=== PATIENT | female | born 1955 ===

== ENCOUNTER 2017-08-21 01:15 | Inpatient (IN) | payer MEDICARE, BC ==
--- NOTE | 2017-08-21 02:13 | C.PDOC ---
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 Patient also complains of slight dysuria which began 2 hours ago. Patient underwent a colonoscopy around 3 months ago and states results were unremarkable. Patient underwent an endoscopy last month and was found to have a gastric ulcer. She denies fever, chills, diarrhea, hematuria. Time Seen by Provider: 08/21/17 02:13 Chief Complaint (Nursing): Abdominal Pain History Per: Patient History/Exam Limitations: no limitations Onset/Duration Of Symptoms: Hrs Current Symptoms Are (Timing): Still Present Severity: Moderate Pain Scale Rating Of: 5 Location Of Pain/Discomfort: Diffuse Radiation Of Pain To:: None Quality Of Discomfort: "Pain" Associated Symptoms: Nausea, Vomiting, Urinary Symptoms (dysuria ). denies: Fever, Chills, Diarrhea Exacerbating Factors: None Alleviating Factors: None Last Bowel Movement: Today Recent travel outside of the [place]: No Additional History Per: Patient Abnormal Vaginal Bleeding: No Past Medical History Reviewed: Historical Data, Nursing Documentation, Vital Signs Vital Signs: Last Vital Signs Temp 98.3 F 08/21/17 01:28 Pulse 87 08/21/17 01:28 Resp 16 08/21/17 01:28 BP 122/84 08/21/17 01:28 Pulse Ox 100 08/21/17 02:33 - Medical History PMH: No Chronic Diseases Surgical History: Endoscopy Family History: States: No Known Family Hx - Social History Hx Alcohol Use: No Hx Substance Use: No Review Of Systems Constitutional: Negative for: Fever, Chills Cardiovascular: Negative for: Chest Pain, Palpitations Respiratory: Negative for: Cough, Shortness of Breath Gastrointestinal: Positive for: Nausea, Vomiting, Abdominal Pain Genitourinary: Positive for: Dysuria. Negative for: Frequency, Hematuria Musculoskeletal: Negative for: Back Pain Skin: Negative for: Rash, Lesions, Jaundice, Bruising Neurological: Negative for: Weakness, Numbness Physical Exam - Physical Exam Appears: Non-toxic, No Acute Distress Skin: Warm, Dry Head: Normacephalic Eye(s): bilateral: Normal Inspection Oral Mucosa: Moist Neck: Supple Chest: Symmetrical, No Deformity, No Tenderness Cardiovascular: Rhythm Regular, No Murmur Respiratory: No Rales, No Rhonchi, No Wheezing Gastrointestinal/Abdominal: Soft, Tenderness (diffuse ), Guarding (slight, voluntary ), No Rebound, Other (tympanic to percussion ) Extremity: Normal ROM, Capillary Refill (less than 2 seconds ) Neurological/Psych: Oriented x3 Gait: Steady ED Course And Treatment - Laboratory Results Result Diagrams: 08/21/17 02:39 0218 02:39 ECG: Interpreted By Me, Viewed By Me ECG Rhythm: Sinus Rhythm (84), Nonspecific Changes O2 Sat by Pulse Oximetry: 100 (on RA ) Pulse Ox Interpretation: Normal Progress Note: Bloodwork, urinalysis, CT A/P ordered. Morphine IVP, Pepcid IVP , Zofran IVP, and IV Fluids administered. Disposition Discussed With Dr.: Saeid Phillip Comment: accepted the pt on his service and took over the care at5;45AM Doctor Will See Patient In The: ED Counseled Patient/Family Regarding: Studies Performed, Diagnosis - Disposition Disposition: HOSPITALIZED Disposition Time: 02:13 Condition: FAIR Forms: [facility] [facility] (Greenlandic) - POA Present On Arrival: None - Clinical Impression Clinical Impression: Abdominal pain, SBO (small bowel obstruction), Urinary retention - Scribe Statement The provider has reviewed the documentation as recorded by the Scribe (Dulce Solorzano) Provider Attestation: All medical record entries made by the Scribe were at my direction and personally dictated by me. I have reviewed the chart and agree that the record accurately reflects my personal performance of the history, physical exam, medical decision making, and the department course for this patient. I have also personally directed, reviewed, and agree with the discharge instructions and disposition. Decision To Admit - Pt Status Changed To: Hospital Disposition Of: Inpatient - Admit Certification Admit to Inpatient:: After my assessment, the patient will require hospitalization for at least two midnights. This is because of the severity of symptoms shown, intensity of services needed, and/or the medical risk in this patient being treated as an outpatient. - InPatient: Physician Admission Certification:: After my assessment, the patient will require hospitalization for at least two midnights. This is because of the severity of symptoms shown, intensity of services needed, and/or the medical risk in this patient being treated as an outpatient. - . Bed Request Type: Regular Admitting Physician: Saeid Phillip Patient Diagnosis: Abdominal pain, SBO (small bowel obstruction), Urinary retention
[2017-08-21] MEDS ORDERED: Sodium Chloride 0.9% 1,000 ML IV ONE (02:17)
[2017-08-21] MEDS ORDERED: Sodium Chloride 0.9% 1,000 ML ONE (02:23)
[2017-08-21] MEDS ORDERED: Morphine 4 MG/ML VIAL ONE ×2 (02:24→08:17)
[2017-08-21 02:42] LABS: BASO % 0.3 % (0.0-2.0); EOS % 0.1 % (0.0-4.0); HEMOGLOBIN 13.7 g/dL (11.0-16.0); LYMPH # 0.6 K/uL (1.0-4.3); LYMPH % 4.2 % (20.0-40.0); MEAN CELL VOLUME 86.9 fL (81.0-99.0); MEAN CORPUSCULAR HEMOGLOBIN 29.7 pg (27.0-31.0); MEAN CORPUSCULAR HGB CONC 34.2 g/dL (33.0-37.0); MEAN PLATELET VOLUME 7.9 fL (7.2-11.7); MONO # 0.5 K/uL (0.0-0.8); MONO % 3.5 % (0.0-10.0); NEUT # 13.1 K/uL (1.8-7.0); NEUT % 91.9 % (50.0-75.0); NRBC % 0.1 % (0.0-2.0); PLATELET COUNT 277 K/uL (130-400); RBC 4.61 Mil/uL (3.80-5.20); RED CELL DISTRIBUTION WIDTH 13.2 % (11.5-14.5); WHITE BLOOD COUNT 14.2 K/uL (4.8-10.8)
[2017-08-21 02:53] LABS: ALB/GLOB RATIO 1.1 (1.0-2.1); ALBUMIN 4.4 g/dL (3.5-5.0); CALCIUM 8.9 mg/dl (8.6-10.4); GFR AFRICAN-AMERICAN > 60; GFR NON-AFRICAN AMERICAN > 60; LIPASE 271 U/L (23-300)
[2017-08-21 02:54] LABS: ALT/SGPT 30 U/L (9-52); AST/SGOT 37 U/L (14-36); BLOOD UREA NITROGEN 16 mg/dL (7-17)
[2017-08-21 03:22] LABS: BANDS 3 % (0-2); LYMPHOCYTE 5 % (20-40); MONOCYTE 4 % (0-10); NEUTROPHIL 88 % (50-75); PLATELET ESTIMATE NORMAL (NORMAL); TOTAL CELLS COUNTED 100
[2017-08-21] MEDS ORDERED: Iodixanol 320 MG/ML 100 ML BOTTLE IV ONE (03:38)
[2017-08-21 03:49] LABS: PROTHROMBIN TIME 11.2 SECONDS (9.7-12.2)
[2017-08-21 04:16] LABS: SQUAMOUS EPITHIAL < 1 /hpf (0-5); URINE BACTERIA RARE (<OCC); URINE BILIRUBIN NEGATIVE (NEGATIVE); URINE BLOOD 2+ (NEGATIVE); URINE CLARITY Clear (Clear); URINE COLOR Straw (YELLOW); URINE GLUCOSE (UA) NORMAL (Normal); URINE LEUKOCYTE ESTERASE NEG Leu/uL (Negative); URINE NITRATE NEGATIVE (NEGATIVE); URINE PROTEIN NEGATIVE (NEGATIVE); URINE UROBILINOGEN NORMAL mg/dL (0.2-1.0)
--- NOTE | 2017-08-21 05:08 | CT ---
EXAM: CT Abdomen and Pelvis With Intravenous Contrast CLINICAL HISTORY: 61 years old, female; Pain; Abdominal pain; Additional info: Abd pain TECHNIQUE: Axial computed tomography images of the abdomen and pelvis with intravenous contrast. All CT scans at this facility use one or more dose reduction techniques, viz.: automated exposure control; ma/kV adjustment per patient size (including targeted exams where dose is matched to indication; i.e. head); or iterative reconstruction technique. 663 images are submitted.Sagittal and coronal MPR reformatted images are submitted. Coronal and sagittal reformatted images were created and reviewed. CONTRAST: 100 mL of [id number] administered intravenously. COMPARISON: No relevant prior studies available. FINDINGS: Artifacts: Limited due to motion and misregistration artifacts. Lower thorax: There is bibasilar atelectasis. Mild cardiomegaly. Possible small hiatal hernia. ABDOMEN: Liver: Fatty liver. Gallbladder and bile ducts: Unremarkable. No ductal dilation. Pancreas: Borderline prominence of pancreatic duct. Spleen: Unremarkable. No splenomegaly. Adrenals: Unremarkable. No mass. Kidneys and ureters: Unremarkable. No solid mass. No hydronephrosis. Stomach and bowel: There are dilated small bowel loops with air fluid level measuring 2.2 cm with mesenteric edema and transition in the right posterior pelvis seen on image 122 series 3 suspicious for small bowel obstruction. Correlation with patient's obstructive symptoms is recommended. Diverticulosis. Moderate amount of stool in the colon. Appendix: Normal caliber appendix without appendicolith. There is surrounding reactive infiltration around the appendix. PELVIS: Bladder: There is nonspecific bladder wall thickening. Correlation with urinalysis may be helpful if cystitis is clinically suspected. There is García catheter in a partially distended bladder with air fluid level. Reproductive: Heterogeneous appearance to the uterus. ABDOMEN and PELVIS: Intraperitoneal space: Moderate to large amount of free pelvic fluid. No free air. Bones/joints: No acute fracture. No dislocation. Soft tissues: Unremarkable. Vasculature: IVC filter. No abdominal aortic aneurysm. Lymph nodes: Small subcentimeter para-aortic lymph nodes. IMPRESSION: 1. There are dilated small bowel loops with air fluid level measuring 2.2 cm with mesenteric edema and transition in the right posterior pelvis seen on image 122 series 3 suspicious for small bowel obstruction. Correlation with patient's obstructive symptoms is recommended. 2. Moderate to large amount of free pelvic fluid.
[2017-08-21] MEDS ORDERED: Piperacillin/Tazobact 3.375 gm 100 ML IVPB STA (05:38)
[2017-08-21] MEDS ORDERED: Piperacillin/Tazobact 3.375 GM in Sodium Chloride 0.9% 100 ML IVPB STA (05:45)
--- NOTE | 2017-08-21 07:16 | CP.PCM.HP ---
Past Patient History - Past Social History Smoking Status: Never Smoked - PSYCHIATRIC Hx Substance Use: No - SURGICAL HISTORY Other/Comment: colonoscopy Meds Allergies/Adverse Reactions: Allergies Allergy/AdvReac Type Severity Reaction Status Date / Time No Known Allergies Allergy Verified 08/21/17 01:30 Results - Vital Signs Recent Vital Signs: Last Vital Signs Temp 98.3 F 08/21/17 01:28 Pulse 87 08/21/17 01:28 Resp 16 08/21/17 01:28 BP 122/84 08/21/17 01:28 Pulse Ox 100 08/21/17 06:00 - Labs Result Diagrams: 08/21/17 02:39 08/21/17 02:39 Labs: Laboratory Results - last 24 hr 08/21/17 08/21/17 08/21/17 02:39 02:39 03:39 WBC 14.2 H RBC 4.61 Hgb 13.7 Hct 40.0 MCV 86.9 MCH 29.7 MCHC 34.2 RDW 13.2 Plt Count 277 MPV 7.9 Neut % (Auto) 91.9 H Lymph % (Auto) 4.2 L Mason % (Auto) 3.5 Eos % (Auto) 0.1 Baso % (Auto) 0.3 Neut # (Auto) 13.1 H Lymph # (Auto) 0.6 L Mason # (Auto) 0.5 Eos # (Auto) 0.0 Baso # (Auto) 0.0 Neutrophils % (Manual) 88 H Band Neutrophils % 3 H Lymphocytes % (Manual) 5 L Monocytes % (Manual) 4 Platelet Estimate Normal PT 11.2 INR 1.0 APTT 30 Sodium 134 Potassium 4.6 Chloride 96 L Carbon Dioxide 28 Anion Gap 15 BUN 16 Creatinine 0.6 L Est GFR ( Amer) > 60 Est GFR (Non-Af Amer) > 60 Random Glucose 124 H Calcium 8.9 Total Bilirubin 0.8 AST 37 H ALT 30 Alkaline Phosphatase 72 Total Protein 8.2 Albumin 4.4 Globulin 3.8 Albumin/Globulin Ratio 1.1 Lipase 271 Urine Color Urine Clarity Urine pH Ur Specific [place] Urine Protein Urine Glucose (UA) Urine Ketones Urine Blood Urine Nitrate Urine Bilirubin Urine Urobilinogen Ur Leukocyte Esterase Urine WBC (Auto) Urine RBC (Auto) Ur Squamous Epith Cells Urine Bacteria 08/21/17 04:06 WBC RBC Hgb Hct MCV MCH MCHC RDW Plt Count MPV Neut % (Auto) Lymph % (Auto) Mason % (Auto) Eos % (Auto) Baso % (Auto) Neut # (Auto) Lymph # (Auto) Mason # (Auto) Eos # (Auto) Baso # (Auto) Neutrophils % (Manual) Band Neutrophils % Lymphocytes % (Manual) Monocytes % (Manual) Platelet Estimate PT INR APTT Sodium Potassium Chloride Carbon Dioxide Anion Gap BUN Creatinine Est GFR ( Amer) Est GFR (Non-Af Amer) Random Glucose Calcium Total Bilirubin AST ALT Alkaline Phosphatase Total Protein Albumin Globulin Albumin/Globulin Ratio Lipase Urine Color Straw Urine Clarity Clear Urine pH 6.0 Ur Specific [place] 1.008 Urine Protein Negative Urine Glucose (UA) Normal Urine Ketones 1+ H Urine Blood 2+ H Urine Nitrate Negative Urine Bilirubin Negative Urine Urobilinogen Normal Ur Leukocyte Esterase Neg Urine WBC (Auto) 1 Urine RBC (Auto) 8 H Ur Squamous Epith Cells < 1 Urine Bacteria Rare
[2017-08-21] MEDS: Morphine 4 MG/ML VIAL IVP PRN ×3 (08:23→21:21)
[2017-08-21] MEDS ORDERED: DEXTROSE IV SCH (08:30)
[2017-08-21] MEDS ORDERED: [UNRECOGNIZED DRUG - OTHER] IV SCH (08:30)
[2017-08-21] MEDS ORDERED: D5 IV SCH (08:30)
[2017-08-21] MEDS ORDERED: POTASSIUM CHL IV SCH (08:30)
[2017-08-21] MEDS ORDERED: Potassium Chl 10 mEq in D5-1/2 1,000 ML IV SCH (08:30)
[2017-08-21 09:03] LABS: MAGNESIUM 1.8 mg/dL (1.6-2.3)
--- NOTE | 2017-08-21 09:13 | RAD ---
Chest x-ray single frontal view History: Medical clearance. Comparison: None available. Findings: No focal infiltrate or effusion. Heart size within normal limits. Small nodular density at the right lung apex likely represents confluence of shadows of ribs and vessels. Impression: No focal infiltrate or effusion.
--- NOTE | 2017-08-21 09:35 | CP.PCM.CON ---
History of Present Illness - History of Present Illness History of Present Illness: General Surgery- Dr. Rouse 61F pmhx significant for diverticula, PUD 2/2 H.Pylori, pelvic cancer s/p chemo and radiation in 2004, R. Oopherectomy presents to [facility] ED with generalized abdominal pain localized periumbilical and RLQ yesterday at 5pm. patient never had pain like this in the past. Associated w/ one episode of non- bloody non-bilious vomiting, and nausea. Last BM was 2 days ago. Pt also states difficulty urinating, last void was yesterday at 5pm. Denies current fevers, chills, chest pain, shortnes of breath, nausea, vomiting , diarrhea PMH: stated above PSH: R oopherectomy ALL: NKDA SocialHx: Denies tobacco use, etoh, recreational drug use Review of Systems - Review of Systems All systems: reviewed and no additional remarkable complaints except - Constitutional Constitutional: As Per HPI Past Patient History - Past Social History Smoking Status: Never Smoked - PSYCHIATRIC Hx Substance Use: No - SURGICAL HISTORY Other/Comment: colonoscopy Meds Allergies/Adverse Reactions: Allergies Allergy/AdvReac Type Severity Reaction Status Date / Time No Known Allergies Allergy Verified 08/21/17 01:30 - Medications Medications: Current Medications Acetaminophen (Tylenol 325mg Tab) 650 mg PO Q6 PRN PRN Reason: Fever >100.4 F Famotidine (Pepcid) 20 mg IVP Q12 [facility] Ceftriaxone Sodium 1 gm/ (Sodium Chloride) 100 mls @ 100 mls/hr IVPB DAILY [facility] Metronidazole (Flagyl) 500 mg in 100 mls @ 100 mls/hr IVPB Q8 [facility] Potassium Chloride 10 meq/ (Dextrose/Sodium Chloride) 1,005 mls @ 100 mls/hr IV .Q10H3M [facility] Morphine Sulfate (Morphine) 1 mg IVP Q4 PRN PRN Reason: Pain, severe (8-10) Last Admin: 08/21/17 08:23 Dose: 1 mg Morphine Sulfate (Morphine) 2 mg IVP Q4 PRN PRN Reason: Pain, moderate (4-7) Ondansetron HCl (Zofran Inj) 4 mg IVP Q4H PRN PRN Reason: Nausea/Vomiting Pantoprazole Sodium (Protonix Inj) 40 mg IVP DAILY [facility] Physical Exam - Constitutional Appears: Non-toxic, No Acute Distress, Agitated - Head Exam Head Exam: ATRAUMATIC - Eye Exam Eye Exam: EOMI. absent: Scleral icterus - ENT Exam ENT Exam: Mucous Membranes Moist - Respiratory Exam Respiratory Exam: NORMAL BREATHING PATTERN. absent: Accessory Muscle Use, Respiratory Distress - Cardiovascular Exam Cardiovascular Exam: +S1, +S2. absent: Bradycardia, Tachycardia - GI/Abdominal Exam GI & Abdominal Exam: Distended, Guarding, Soft, Tenderness. absent: Firm, Hernia, Rebound, Rigid Additional comments: tender to palpation periumbilical in RLQ Scar in RLQ voluntary guarding non-peritoneal - Extremities Exam Extremities exam: Positive for: normal inspection. Negative for: calf tenderness - Neurological Exam Neurological exam: Alert, Oriented x3 - Psychiatric Exam Psychiatric exam: Normal Affect - Skin Skin Exam: Intact, Warm Results - Vital Signs Recent Vital Signs: Last Vital Signs Temp 98.1 F 08/21/17 09:22 Pulse 79 08/21/17 09:22 Resp 16 08/21/17 09:22 BP 102/65 08/21/17 09:22 Pulse Ox 98 08/21/17 09:22 - Labs Result Diagrams: 08/21/17 02:39 08/21/17 02:39 Labs: Laboratory Results - last 24 hr 08/21/17 08/21/17 08/21/17 02:39 02:39 03:39 WBC 14.2 H RBC 4.61 Hgb 13.7 Hct 40.0 MCV 86.9 MCH 29.7 MCHC 34.2 RDW 13.2 Plt Count 277 MPV 7.9 Neut % (Auto) 91.9 H Lymph % (Auto) 4.2 L Nicholas % (Auto) 3.5 Eos % (Auto) 0.1 Baso % (Auto) 0.3 Neut # (Auto) 13.1 H Lymph # (Auto) 0.6 L Nicholas # (Auto) 0.5 Eos # (Auto) 0.0 Baso # (Auto) 0.0 Neutrophils % (Manual) 88 H Band Neutrophils % 3 H Lymphocytes % (Manual) 5 L Monocytes % (Manual) 4 Platelet Estimate Normal PT 11.2 INR 1.0 APTT 30 Sodium 134 Potassium 4.6 Chloride 96 L Carbon Dioxide 28 Anion Gap 15 BUN 16 Creatinine 0.6 L Est GFR ( Amer) > 60 Est GFR (Non-Af Amer) > 60 Random Glucose 124 H Hemoglobin A1c Calcium 8.9 Phosphorus Magnesium Total Bilirubin 0.8 AST 37 H ALT 30 Alkaline Phosphatase 72 Total Protein 8.2 Albumin 4.4 Globulin 3.8 Albumin/Globulin Ratio 1.1 Lipase 271 Free T4 Urine Color Urine Clarity Urine pH Ur Specific [place] Urine Protein Urine Glucose (UA) Urine Ketones Urine Blood Urine Nitrate Urine Bilirubin Urine Urobilinogen Ur Leukocyte Esterase Urine WBC (Auto) Urine RBC (Auto) Ur Squamous Epith Cells Urine Bacteria 08/21/17 08/21/17 08/21/17 04:06 08:09 08:09 WBC RBC Hgb Hct MCV MCH MCHC RDW Plt Count MPV Neut % (Auto) Lymph % (Auto) Nicholas % (Auto) Eos % (Auto) Baso % (Auto) Neut # (Auto) Lymph # (Auto) Nicholas # (Auto) Eos # (Auto) Baso # (Auto) Neutrophils % (Manual) Band Neutrophils % Lymphocytes % (Manual) Monocytes % (Manual) Platelet Estimate PT INR APTT Sodium Potassium Chloride Carbon Dioxide Anion Gap BUN Creatinine Est GFR ( Amer) Est GFR (Non-Af Amer) Random Glucose Hemoglobin A1c 5.4 Calcium Phosphorus 3.4 Magnesium 1.8 Total Bilirubin AST ALT Alkaline Phosphatase Total Protein Albumin Globulin Albumin/Globulin Ratio Lipase Free T4 Urine Color Straw Urine Clarity Clear Urine pH 6.0 Ur Specific [place] 1.008 Urine Protein Negative Urine Glucose (UA) Normal Urine Ketones 1+ H Urine Blood 2+ H Urine Nitrate Negative Urine Bilirubin Negative Urine Urobilinogen Normal Ur Leukocyte Esterase Neg Urine WBC (Auto) 1 Urine RBC (Auto) 8 H Ur Squamous Epith Cells < 1 Urine Bacteria Rare 08/21/17 08:09 WBC RBC Hgb Hct MCV MCH MCHC RDW Plt Count MPV Neut % (Auto) Lymph % (Auto) Nicholas % (Auto) Eos % (Auto) Baso % (Auto) Neut # (Auto) Lymph # (Auto) Nicholas # (Auto) Eos # (Auto) Baso # (Auto) Neutrophils % (Manual) Band Neutrophils % Lymphocytes % (Manual) Monocytes % (Manual) Platelet Estimate PT INR APTT Sodium Potassium Chloride Carbon Dioxide Anion Gap BUN Creatinine Est GFR ( Amer) Est GFR (Non-Af Amer) Random Glucose Hemoglobin A1c Calcium Phosphorus Magnesium Total Bilirubin AST ALT Alkaline Phosphatase Total Protein Albumin Globulin Albumin/Globulin Ratio Lipase Free T4 0.93 Urine Color Urine Clarity Urine pH Ur Specific [place] Urine Protein Urine Glucose (UA) Urine Ketones Urine Blood Urine Nitrate Urine Bilirubin Urine Urobilinogen Ur Leukocyte Esterase Urine WBC (Auto) Urine RBC (Auto) Ur Squamous Epith Cells Urine Bacteria Assessment & Plan - Assessment and Plan (Free Text) Assessment: 61F pmhx gastric ulcer 2/2 h.pylori, open r. oopherectomy; abd pain 2/2 partial bowel obstruction Plan: - NPO - IVF & Abx - DVT & DVT ppx - pain control and anti-emetic PRN - bowel rest - serial abd exams - discussed w/ Dr. Rouse surgical attending Joss Chen PGY1
[2017-08-21] MEDS ORDERED: Morphine 4 MG/ML VIAL IVP PRN (10:00)
[2017-08-21 10:03] VITALS: RESP 20
[2017-08-21] MEDS: Potassium Chloride 10 MEQ in Dextrose 5%/0.45% NS 1,000 ML IV SCH ×2 (11:15→21:20)
[2017-08-21] MEDS ORDERED: Piperacillin/Tazobact 3.375 GM in Sodium Chloride 100 ML IVPB SCH (12:00)
[2017-08-21] MEDS: Piperacillin/Tazobact 3.375 GM in Sodium Chloride 100 ML IVPB SCH ×2 (12:35→21:20)
[2017-08-21] MEDS ORDERED: metroNIDAZOLE IV 500 mg/100 ml 500 MG/100 ML BAG IVPB SCH (14:00)
[2017-08-21] MEDS: metroNIDAZOLE IV 500 mg/100 ml 500 MG/100 ML BAG IVPB SCH (17:42)
[2017-08-22] MEDS: Potassium Chloride 10 MEQ in Dextrose 5%/0.45% NS 1,000 ML IV SCH ×3 (00:25→13:52)
[2017-08-22] MEDS: Piperacillin/Tazobact 3.375 GM in Sodium Chloride 100 ML IVPB SCH ×2 (05:00→11:51)
[2017-08-22 08:11] LABS: BASO % 0.1 % (0.0-2.0); EOS % 0.1 % (0.0-4.0); LYMPH # 0.3 K/uL (1.0-4.3); LYMPH % 4.1 % (20.0-40.0); MEAN CELL VOLUME 86.9 fL (81.0-99.0); MEAN CORPUSCULAR HEMOGLOBIN 30.8 pg (27.0-31.0); MEAN CORPUSCULAR HGB CONC 35.4 g/dL (33.0-37.0); MEAN PLATELET VOLUME 7.8 fL (7.2-11.7); MONO # 0.2 K/uL (0.0-0.8); MONO % 2.2 % (0.0-10.0); NEUT # 6.8 K/uL (1.8-7.0); NEUT % 93.5 % (50.0-75.0); PLATELET COUNT 228 K/uL (130-400); RBC 3.91 Mil/uL (3.80-5.20); RED CELL DISTRIBUTION WIDTH 13.1 % (11.5-14.5); WHITE BLOOD COUNT 7.2 K/uL (4.8-10.8)
[2017-08-22 08:24] LABS: ALB/GLOB RATIO 1.1 (1.0-2.1); ALBUMIN 3.1 g/dL (3.5-5.0); ALT/SGPT 24 U/L (9-52); AST/SGOT 24 U/L (14-36); BLOOD UREA NITROGEN 8 mg/dL (7-17); CALCIUM 7.8 mg/dl (8.6-10.4); GFR AFRICAN-AMERICAN > 60; GFR NON-AFRICAN AMERICAN > 60; MAGNESIUM 2.1 mg/dL (1.6-2.3)
[2017-08-22] MEDS: metroNIDAZOLE IV 500 mg/100 ml 500 MG/100 ML BAG IVPB SCH (09:27)
--- NOTE | 2017-08-22 09:30 | CP.PCM.PN ---
Subjective - Date & Time of Evaluation Date of Evaluation: 08/22/17 Time of Evaluation: 07:05 - Subjective Subjective: General Surgery- Dr. Rouse Patient seen and examined at bedside this AM. no acute events overnight. Patient anand was removed, able self void. Abd pain significantly improved. + loose non-bloody BM. Denies current nausea or vomiting. Denies F/C CP/SOB Objective - Vital Signs/Intake and Output Vital Signs (last 24 hours): Temp Pulse Resp BP Pulse Ox 99.2 F 83 20 104/69 95 08/22/17 07:43 08/22/17 07:43 08/22/17 07:43 08/22/17 07:43 08/22/17 07:43 Intake and Output: 08/22/17 08/22/17 06:59 18:59 Intake Total 1600 Output Total 800 Balance 800 - Medications Medications: Current Medications Acetaminophen (Tylenol 325mg Tab) 650 mg PO Q6 PRN PRN Reason: Fever >100.4 F Famotidine (Pepcid) 20 mg IVP Q12 [facility] Last Admin: 08/21/17 21:23 Dose: 20 mg Potassium Chloride 10 meq/ (Dextrose/Sodium Chloride) 1,005 mls @ 100 mls/hr IV .Q10H3M [facility] Last Admin: 08/22/17 05:19 Dose: Not Given Piperacillin Sod/Tazobactam (Sod 3.375 gm/ Sodium Chloride) 100 mls @ 200 mls/ hr IVPB Q8H [facility] Last Admin: 08/22/17 05:00 Dose: 200 mls/hr Metronidazole (Flagyl) 500 mg in 100 mls @ 100 mls/hr IVPB BID [facility] Last Admin: 08/21/17 17:42 Dose: 100 mls/hr Metoclopramide HCl (Reglan) 5 mg IVP Q8H [facility] Last Admin: 08/22/17 05:18 Dose: 5 mg Morphine Sulfate (Morphine) 1 mg IVP Q4 PRN PRN Reason: Pain, severe (8-10) Last Admin: 08/21/17 21:21 Dose: 1 mg Morphine Sulfate (Morphine) 2 mg IVP Q4 PRN PRN Reason: Pain, moderate (4-7) Pantoprazole Sodium (Protonix Inj) 40 mg IVP DAILY [facility] Last Admin: 02/15/18 10:56 Dose: 40 mg - Labs Labs: 08/22/17 07:50 08/22/17 07:50 PT 11.2 SECONDS (9.7-12.2) 08/21/17 03:39 INR 1.0 08/21/17 03:39 APTT 30 SECONDS (21-34) 08/21/17 03:39 - Constitutional Appears: Non-toxic, No Acute Distress - Head Exam Head Exam: ATRAUMATIC - Eye Exam Eye Exam: EOMI. absent: Scleral icterus - ENT Exam ENT Exam: Mucous Membranes Moist - Respiratory Exam Respiratory Exam: NORMAL BREATHING PATTERN. absent: Accessory Muscle Use, Respiratory Distress - Cardiovascular Exam Cardiovascular Exam: +S1, +S2. absent: Bradycardia, Tachycardia - GI/Abdominal Exam GI & Abdominal Exam: Firm, Soft. absent: Distended, Guarding, Rigid, Tenderness Additional comments: Firm in RLQ and inferior umbilical possibly 2/2 radiation - Neurological Exam Neurological Exam: Alert, Awake, Oriented x3 - Psychiatric Exam Psychiatric exam: Normal Affect - Skin Skin Exam: Dry, Warm Assessment and Plan - Assessment and Plan (Free Text) Assessment: 61F w/ pSBO, abd pain resolved, luekocytosis resolved Plan: - unable to tolerate clears - will make NPO and re-asses in AM - monitor bowel function - strict I/O - pain control and anti-emetic PRN - serial abd exams - further recs per Dr. Rouse surgical attending Joss Chen PGY1
[2017-08-22] MEDS ORDERED: Potassium Chloride 20 mEq/15 ml LIQ UD PO ONE (09:36)
--- NOTE | 2017-08-22 09:48 | CP.PCM.PN ---
Subjective - Date & Time of Evaluation Date of Evaluation: 08/22/17 Time of Evaluation: 07:45 - Subjective Subjective: PGY2 Medicine Note - Dr. Anthony Solorzano Patient seen and examined at bedside. Admitted 08/21/17 due to generalized abdominal pain and one episode of n/v. Currently being followed by general surgery. Her last BM was 2 days ago and loose. She currently denies abdominal pain, but feels bloated. Denies f/c, SOB, n/v, or any additional acute complaints. Objective - Vital Signs/Intake and Output Vital Signs (last 24 hours): Temp Pulse Resp BP Pulse Ox 99.2 F 83 20 104/69 95 08/22/17 07:43 08/22/17 07:43 08/22/17 07:43 08/22/17 07:43 08/22/17 07:43 Intake and Output: 08/22/17 08/22/17 06:59 18:59 Intake Total 1600 Output Total 800 Balance 800 - Medications Medications: Current Medications Acetaminophen (Tylenol 325mg Tab) 650 mg PO Q6 PRN PRN Reason: Fever >100.4 F Famotidine (Pepcid) 20 mg IVP Q12 [facility] Last Admin: 08/22/17 09:28 Dose: 20 mg Potassium Chloride 10 meq/ (Dextrose/Sodium Chloride) 1,005 mls @ 100 mls/hr IV .Q10H3M [facility] Last Admin: 08/22/17 05:19 Dose: Not Given Piperacillin Sod/Tazobactam (Sod 3.375 gm/ Sodium Chloride) 100 mls @ 200 mls/ hr IVPB Q8H [facility] Last Admin: 08/22/17 05:00 Dose: 200 mls/hr Metronidazole (Flagyl) 500 mg in 100 mls @ 100 mls/hr IVPB BID [facility] Last Admin: 08/22/17 09:27 Dose: 100 mls/hr Metoclopramide HCl (Reglan) 5 mg IVP Q8H [facility] Last Admin: 08/22/17 05:18 Dose: 5 mg Morphine Sulfate (Morphine) 1 mg IVP Q4 PRN PRN Reason: Pain, severe (8-10) Last Admin: 08/21/17 21:21 Dose: 1 mg Morphine Sulfate (Morphine) 2 mg IVP Q4 PRN PRN Reason: Pain, moderate (4-7) Pantoprazole Sodium (Protonix Inj) 40 mg IVP DAILY [facility] Last Admin: 08/22/17 09:28 Dose: 40 mg - Labs Labs: 08/22/17 07:50 08/22/17 07:50 PT 11.2 SECONDS (9.7-12.2) 08/21/17 03:39 INR 1.0 08/21/17 03:39 APTT 30 SECONDS (21-34) 08/21/17 03:39 - Additional Findings Additional findings: - Constitutional Appears: Non-toxic, No Acute Distress - Head Exam Head Exam: ATRAUMATIC - Eye Exam Eye Exam: EOMI. absent: Scleral icterus - ENT Exam ENT Exam: Mucous Membranes Moist - Respiratory Exam Respiratory Exam: NORMAL BREATHING PATTERN. absent: Accessory Muscle Use, Respiratory Distress - Cardiovascular Exam Cardiovascular Exam: +S1, +S2. absent: Bradycardia, Tachycardia - GI/Abdominal Exam GI & Abdominal Exam: Firm, Distended. absent: Guarding, Rigid, Tenderness - Neurological Exam Neurological Exam: Alert, Awake, Oriented x3 - Psychiatric Exam Psychiatric exam: Normal Affect - Skin Skin Exam: Dry, Warm Assessment and Plan - Assessment and Plan (Free Text) Assessment: Small Bowel Obstruction 08/22: GI Consult, Dr. Leary, f/u recs. Start Cefepim 1Gm IVPB Q12H - CT abd with evidence of SBO. see full report. - Gen surgery consult, Dr. Rouse, f/u recs\ Start CLD - advance as tolerated Strict I/O Tylenol 325mg Tab) 650 mg PO Q6 PRN Piperacillin Sod/Tazobactam 3.375 IVPB Q8H Flagyl 500mg IVPB BID Reglan 5mg IVP Q8H [facility] Morphine) 1 mg IVP Q4 PRN (severe pain) Morphine) 2 mg IVP Q4 PRN (moderate pain) GERD pt with hx of gastric ulcer Hold home med Dexilant 60mg qD. Covered by GI prophylaxis Prophylaxis Pepcid) 20 mg IVP Q12 [facility] Protonix Inj) 40 mg IVP DAILY [facility] SCDs Discussed with attending, all management per Dr. Anthony Solorzano
[2017-08-22 10:49] LABS: BANDS 6 % (0-2); LYMPHOCYTE 4 % (20-40); MONOCYTE 3 % (0-10); NEUTROPHIL 87 % (50-75); TOTAL CELLS COUNTED 100
[2017-08-22 10:50] LABS: PLATELET ESTIMATE NORMAL (NORMAL)
[2017-08-22] MEDS ORDERED: Potassium & Sodium Phosphate PO SCH (11:30)
[2017-08-22] MEDS: Morphine 4 MG/ML VIAL IVP PRN (15:04)
--- NOTE | 2017-08-22 23:23 | CARD ---
APPROVED REPORT EKG Measurement Heart [id number] <Conclusion> Normal sinus rhythm Rightward axis Borderline ECG
--- NOTE | 2017-08-22 23:39 | CP.PCM.PN ---
Subjective - Date & Time of Evaluation Date of Evaluation: 08/22/17 Objective - Vital Signs/Intake and Output Vital Signs (last 24 hours): Temp Pulse Resp BP Pulse Ox 99 F 91 H 20 101/71 96 08/22/17 17:06 08/22/17 17:06 08/22/17 17:06 08/22/17 17:06 08/22/17 17:06 Intake and Output: 08/22/17 08/23/17 18:59 06:59 Intake Total 1000 Balance 1000 - Medications Medications: Current Medications Acetaminophen (Tylenol 325mg Tab) 650 mg PO Q6 PRN PRN Reason: Fever >100.4 F Famotidine (Pepcid) 20 mg IVP Q12 [facility] Last Admin: 08/22/17 21:51 Dose: 20 mg Potassium Chloride 10 meq/ (Dextrose/Sodium Chloride) 1,005 mls @ 100 mls/hr IV .Q10H3M [facility] Last Admin: 08/22/17 13:52 Dose: 100 mls/hr Cefepime HCl 1 gm/ Dextrose 50 mls @ 100 mls/hr IVPB Q12H [facility] Last Admin: 08/22/17 18:36 Dose: 100 mls/hr Metoclopramide HCl (Reglan) 5 mg IVP Q8H [facility] Last Admin: 08/22/17 21:51 Dose: 5 mg Morphine Sulfate (Morphine) 1 mg IVP Q4 PRN PRN Reason: Pain, severe (8-10) Last Admin: 08/22/17 15:04 Dose: 1 mg Morphine Sulfate (Morphine) 2 mg IVP Q4 PRN PRN Reason: Pain, moderate (4-7) Pantoprazole Sodium (Protonix Inj) 40 mg IVP DAILY [facility] Last Admin: 08/22/17 09:28 Dose: 40 mg Pneumococcal Polyvalent Vaccine (Pneumovax 23 Vaccine) 0.5 ml IM .ONCE ONE Stop: 08/23/17 10:01 - Labs Labs: 08/22/17 07:50 08/22/17 07:50 PT 11.2 SECONDS (9.7-12.2) 08/21/17 03:39 INR 1.0 08/21/17 03:39 APTT 30 SECONDS (21-34) 08/21/17 03:39
[2017-08-23] MEDS: Potassium Chloride 10 MEQ in Dextrose 5%/0.45% NS 1,000 ML IV SCH ×2 (02:00→10:57)
[2017-08-23 08:39] LABS: BASO % 0.1 % (0.0-2.0); EOS # 0.1 K/uL (0.0-0.7); EOS % 0.7 % (0.0-4.0); HEMOGLOBIN 12.2 g/dL (11.0-16.0); LYMPH # 0.3 K/uL (1.0-4.3); LYMPH % 3.3 % (20.0-40.0); MEAN CELL VOLUME 88.1 fL (81.0-99.0); MEAN CORPUSCULAR HEMOGLOBIN 30.3 pg (27.0-31.0); MEAN CORPUSCULAR HGB CONC 34.4 g/dL (33.0-37.0); MEAN PLATELET VOLUME 7.6 fL (7.2-11.7); MONO # 0.2 K/uL (0.0-0.8); MONO % 2.5 % (0.0-10.0); NEUT # 9.4 K/uL (1.8-7.0); NEUT % 93.4 % (50.0-75.0); PLATELET COUNT 253 K/uL (130-400); RBC 4.04 Mil/uL (3.80-5.20); RED CELL DISTRIBUTION WIDTH 13.1 % (11.5-14.5)
--- NOTE | 2017-08-23 08:39 | RAD ---
PROCEDURE: Radiographs of the chest and abdomen (obstructive series) HISTORY: sbo COMPARISON: Comparison is made with previous CT dated 08/21/2017 TECHNIQUE: AP radiograph of the chest, with upright and supine radiographs of the abdomen. FINDINGS: CHEST: Lungs: Clear. Cardiovascular: Normal size heart. No pulmonary vascular congestion. Pleura: No pleural fluid. No pneumothorax. Other findings: None. ABDOMEN AND PELVIS: Bowel: There are [id number] dilated small bowel loops in the mid and lower abdomen. Free air: None. Bones: Unremarkable. Other findings: IVC filter is seen in place. IMPRESSION: Lbickv-na-myvzuaobzf dilated small bowel loops at the mid and lower abdomen suggestive of bowel obstruction.
[2017-08-23 09:02] LABS: ALBUMIN 3.2 g/dL (3.5-5.0); ALT/SGPT 17 U/L (9-52); AST/SGOT 22 U/L (14-36); BLOOD UREA NITROGEN 6 mg/dL (7-17); GFR AFRICAN-AMERICAN > 60; GFR NON-AFRICAN AMERICAN > 60; MAGNESIUM 2.2 mg/dL (1.6-2.3)
[2017-08-23] MEDS ORDERED: Pneumococcal 23-Valent Vaccine IM ONE (10:00)
[2017-08-23] MEDS ORDERED: Influenza Vaccine 60 mcg/0.5 mL SYR (4YR UP) IM ONE (10:00)
[2017-08-23] MEDS ORDERED: Potassium Chloride 20 mEq/15 ml LIQ UD PO ONE (10:00)
[2017-08-23 10:22] LABS: BANDS 7 % (0-2); EOSINOPHIL 2 % (0-4); LYMPHOCYTE 5 % (20-40); MONOCYTE 4 % (0-10); NEUTROPHIL 82 % (50-75); PLATELET ESTIMATE NORMAL (NORMAL); TOTAL CELLS COUNTED 100
[2017-08-23 11:57] LABS: INR 1.2; PROTHROMBIN TIME 13.3 SECONDS (9.7-12.2)
--- NOTE | 2017-08-23 14:22 | CP.PCM.CON ---
<Farideh Allen - Last Filed: 08/23/17 14:28> History of Present Illness - History of Present Illness History of Present Illness: GI Fellow PGY4 Consult Note This is a 61F pmhx significant for diverticulosis, PUD 2/2 H.Pylori, pelvic cancer s/p chemo and radiation in 2004, R. Oopherectomy presents to [facility] ED with generalized abdominal pain localized periumbilical and RLQ yesterday at 5pm. patient never had pain like this in the past. Associated with one episode of non-bloody non-bilious vomiting, and nausea. Pt has a watery BM this morning and was not able to tolerate clear liquid diet yesterday. Denies current fevers, chills, chest pain, shortness of breath, nausea, vomiting, diarrhea. ROS: A 12pt ROS was negative except as above PMH: stated above PSH: R oopherectomy SocialHx: Denies tobacco use, etoh, recreational drug use Past Patient History - Past Medical History & Family History Past Medical History?: Yes - Past Social History Smoking Status: Never Smoked - CARDIAC Hx Cardiac Disorders: No - PULMONARY Hx Respiratory Disorders: No - NEUROLOGICAL Hx Neurological Disorder: No - HEENT Hx HEENT Problems: No - RENAL Hx Chronic Kidney Disease: No - ENDOCRINE/METABOLIC Hx Endocrine Disorders: No - HEMATOLOGICAL/ONCOLOGICAL Hx Blood Disorders: Yes Hx Chemotherapy: Yes (pelvic CA 2005) - INTEGUMENTARY Hx Dermatological Problems: No - MUSCULOSKELETAL/RHEUMATOLOGICAL Hx Musculoskeletal Disorders: No Hx Falls: No - GASTROINTESTINAL Hx Gastrointestinal Disorders: Yes Hx Gastroesophageal Reflux: Yes Hx Ulcer: Yes - GENITOURINARY/GYNECOLOGICAL Other/Comment: Pt had ovarian cyst removed in 2005 - PSYCHIATRIC Hx Substance Use: No - SURGICAL HISTORY Other/Comment: colonoscopy - ANESTHESIA Hx Anesthesia: Yes Hx Anesthesia Reactions: No Hx Malignant Hyperthermia: No Has any member of the family had a problem w/ anesthesia?: No Meds Allergies/Adverse Reactions: Allergies Allergy/AdvReac Type Severity Reaction Status Date / Time No Known Allergies Allergy Verified 08/21/17 01:30 - Medications Medications: Current Medications Acetaminophen (Tylenol 325mg Tab) 650 mg PO Q6 PRN PRN Reason: Fever >100.4 F Famotidine (Pepcid) 20 mg IVP Q12 [facility] Last Admin: 08/23/17 10:51 Dose: 20 mg Potassium Chloride 10 meq/ (Dextrose/Sodium Chloride) 1,005 mls @ 100 mls/hr IV .Q10H3M [facility] Last Admin: 08/23/17 10:57 Dose: Not Given Cefepime HCl 1 gm/ Dextrose 50 mls @ 100 mls/hr IVPB Q12H [facility] Last Admin: 08/23/17 05:15 Dose: 100 mls/hr Metoclopramide HCl (Reglan) 5 mg IVP Q8H [facility] Last Admin: 08/23/17 13:34 Dose: 5 mg Morphine Sulfate (Morphine) 1 mg IVP Q4 PRN PRN Reason: Pain, severe (8-10) Last Admin: 08/22/17 15:04 Dose: 1 mg Morphine Sulfate (Morphine) 2 mg IVP Q4 PRN PRN Reason: Pain, moderate (4-7) Pantoprazole Sodium (Protonix Inj) 40 mg IVP DAILY [facility] Last Admin: 08/23/17 10:52 Dose: 40 mg Physical Exam - Constitutional Appears: Non-toxic, No Acute Distress - Head Exam Head Exam: ATRAUMATIC, NORMAL INSPECTION, NORMOCEPHALIC - Eye Exam Eye Exam: EOMI, PERRL Pupil Exam: PERRL - ENT Exam ENT Exam: Mucous Membranes Moist, Normal Exam - Neck Exam Neck exam: Positive for: Normal Inspection - Respiratory Exam Respiratory Exam: Clear to Auscultation Bilateral, NORMAL BREATHING PATTERN - Cardiovascular Exam Cardiovascular Exam: REGULAR RHYTHM, RRR - GI/Abdominal Exam GI & Abdominal Exam: Normal Bowel Sounds, Soft, Tenderness. absent: Distended, Guarding, Rebound, Rigid - Neurological Exam Neurological exam: Alert, Oriented x3 - Psychiatric Exam Psychiatric exam: Normal Affect, Normal Mood - Skin Skin Exam: Dry, Intact, Normal Color, Warm Results - Vital Signs Recent Vital Signs: Last Vital Signs Temp 98.6 F 08/23/17 08:00 Pulse 94 H 08/23/17 08:00 Resp 20 08/23/17 08:00 BP 114/76 08/23/17 08:00 Pulse Ox 96 08/23/17 08:00 - Labs Result Diagrams: 08/23/17 08:26 08/23/17 08:26 Labs: Laboratory Results - last 24 hr 08/23/17 08/23/17 08/23/17 08:26 08:26 11:39 WBC 10.0 RBC 4.04 Hgb 12.2 Hct 35.6 MCV 88.1 MCH 30.3 MCHC 34.4 RDW 13.1 Plt Count 253 MPV 7.6 Neut % (Auto) 93.4 H Lymph % (Auto) 3.3 L Real % (Auto) 2.5 Eos % (Auto) 0.7 Baso % (Auto) 0.1 Neut # (Auto) 9.4 H Lymph # (Auto) 0.3 L Real # (Auto) 0.2 Eos # (Auto) 0.1 Baso # (Auto) 0.0 Neutrophils % (Manual) 82 H Band Neutrophils % 7 H Lymphocytes % (Manual) 5 L Monocytes % (Manual) 4 Eosinophils % (Manual) 2 Platelet Estimate Normal RBC Morphology Normal PT 13.3 H INR 1.2 APTT 33 Sodium 130 L Potassium 3.6 Chloride 98 Carbon Dioxide 28 Anion Gap 8 L BUN 6 L Creatinine 0.6 L Est GFR ( Amer) > 60 Est GFR (Non-Af Amer) > 60 Random Glucose 137 H Calcium 8.0 L Phosphorus 1.8 L Magnesium 2.2 Total Bilirubin 1.0 AST 22 ALT 17 Alkaline Phosphatase 57 Total Protein 6.5 Albumin 3.2 L Globulin 3.2 Albumin/Globulin Ratio 1.0 Assessment & Plan - Assessment and Plan (Free Text) Assessment: This is a 61F pmhx gastric ulcer 2/2 h.pylori, open r. oopherectomy; abd pain 2/ 2 partial bowel obstruction 1. Partial SBO 2. Hx of pelvic cancer s/p resection and chemoradiation Plan: -Continue supportive acre with pain control and anti-emetics -Advance diet as tolerated -CT imaging reviewed with partial SBO -Appreciate surgical recommendations -Pt may need ex lap and possible lysis of adhesions if obstruction does not resolve -Continue to follow closely <Orlando Jose - Last Filed: 08/23/17 15:09> Meds - Medications Medications: Current Medications Acetaminophen (Tylenol 325mg Tab) 650 mg PO Q6 PRN PRN Reason: Fever >100.4 F Famotidine (Pepcid) 20 mg IVP Q12 [facility] Last Admin: 08/23/17 10:51 Dose: 20 mg Potassium Chloride 10 meq/ (Dextrose/Sodium Chloride) 1,005 mls @ 100 mls/hr IV .Q10H3M [facility] Last Admin: 08/23/17 10:57 Dose: Not Given Cefepime HCl 1 gm/ Dextrose 50 mls @ 100 mls/hr IVPB Q12H [facility] Last Admin: 08/23/17 05:15 Dose: 100 mls/hr Metoclopramide HCl (Reglan) 5 mg IVP Q8H [facility] Last Admin: 08/23/17 13:34 Dose: 5 mg Morphine Sulfate (Morphine) 1 mg IVP Q4 PRN PRN Reason: Pain, severe (8-10) Last Admin: 08/22/17 15:04 Dose: 1 mg Morphine Sulfate (Morphine) 2 mg IVP Q4 PRN PRN Reason: Pain, moderate (4-7) Pantoprazole Sodium (Protonix Inj) 40 mg IVP DAILY [facility] Last Admin: 08/23/17 10:52 Dose: 40 mg Results - Vital Signs Recent Vital Signs: Last Vital Signs Temp 98.6 F 08/23/17 08:00 Pulse 94 H 08/23/17 08:00 Resp 20 08/23/17 08:00 BP 114/76 08/23/17 08:00 Pulse Ox 96 08/23/17 08:00 - Labs Result Diagrams: 08/23/17 08:26 08/23/17 08:26 Labs: Laboratory Results - last 24 hr 08/23/17 08/23/17 08/23/17 08:26 08:26 11:39 WBC 10.0 RBC 4.04 Hgb 12.2 Hct 35.6 MCV 88.1 MCH 30.3 MCHC 34.4 RDW 13.1 Plt Count 253 MPV 7.6 Neut % (Auto) 93.4 H Lymph % (Auto) 3.3 L Real % (Auto) 2.5 Eos % (Auto) 0.7 Baso % (Auto) 0.1 Neut # (Auto) 9.4 H Lymph # (Auto) 0.3 L Real # (Auto) 0.2 Eos # (Auto) 0.1 Baso # (Auto) 0.0 Neutrophils % (Manual) 82 H Band Neutrophils % 7 H Lymphocytes % (Manual) 5 L Monocytes % (Manual) 4 Eosinophils % (Manual) 2 Platelet Estimate Normal RBC Morphology Normal PT 13.3 H INR 1.2 APTT 33 Sodium 130 L Potassium 3.6 Chloride 98 Carbon Dioxide 28 Anion Gap 8 L BUN 6 L Creatinine 0.6 L Est GFR ( Amer) > 60 Est GFR (Non-Af Amer) > 60 Random Glucose 137 H Calcium 8.0 L Phosphorus 1.8 L Magnesium 2.2 Total Bilirubin 1.0 AST 22 ALT 17 Alkaline Phosphatase 57 Total Protein 6.5 Albumin 3.2 L Globulin 3.2 Albumin/Globulin Ratio 1.0 Attending/Attestation - Attestation I have personally seen and examined this patient.: Yes I have fully participated in the care of the patient.: Yes I have reviewed all pertinent clinical information: Yes Notes (Text): 08/23/17 15:07 61 year old female with h/o PUD, Ovarian Ca s/p remote h/o surgery/radiation a/ w SBO. 1. Small bowel obstruction Plan: -IV hydration / anti-emetics as needed -supportive measures / pain control -appreciate surgical eval, if conservative management is unsuccessful, then operative management may be necessary -will sign off at this time
--- NOTE | 2017-08-23 15:31 | CP.PCM.PN ---
Subjective - Date & Time of Evaluation Date of Evaluation: 08/23/17 Time of Evaluation: 07:45 - Subjective Subjective: General surgery progress note for Dr. Foreign Marinelli, PGY-1 Pt S & E at bedside this AM and again with attending this afternoon. Pt reports having liquid BMs, no flatus. Ab pain improved. Denies N & V, F & C. Objective - Vital Signs/Intake and Output Vital Signs (last 24 hours): Temp Pulse Resp BP Pulse Ox 98.6 F 94 H 20 114/76 96 08/23/17 08:00 08/23/17 08:00 08/23/17 08:00 08/23/17 08:00 08/23/17 08:00 Intake and Output: 08/23/17 08/23/17 06:59 18:59 Intake Total 800 1640 Balance 800 1640 - Medications Medications: Current Medications Acetaminophen (Tylenol 325mg Tab) 650 mg PO Q6 PRN PRN Reason: Fever >100.4 F Famotidine (Pepcid) 20 mg IVP Q12 [facility] Last Admin: 08/23/17 10:51 Dose: 20 mg Potassium Chloride 10 meq/ (Dextrose/Sodium Chloride) 1,005 mls @ 100 mls/hr IV .Q10H3M [facility] Last Admin: 08/23/17 10:57 Dose: Not Given Cefepime HCl 1 gm/ Dextrose 50 mls @ 100 mls/hr IVPB Q12H [facility] Last Admin: 08/23/17 05:15 Dose: 100 mls/hr Metoclopramide HCl (Reglan) 5 mg IVP Q8H [facility] Last Admin: 08/23/17 13:34 Dose: 5 mg Morphine Sulfate (Morphine) 1 mg IVP Q4 PRN PRN Reason: Pain, severe (8-10) Last Admin: 08/22/17 15:04 Dose: 1 mg Morphine Sulfate (Morphine) 2 mg IVP Q4 PRN PRN Reason: Pain, moderate (4-7) Pantoprazole Sodium (Protonix Inj) 40 mg IVP DAILY [facility] Last Admin: 08/23/17 10:52 Dose: 40 mg - Labs Labs: 08/23/17 08:26 08/23/17 08:26 PT 13.3 SECONDS (9.7-12.2) H 08/23/17 11:39 INR 1.2 08/23/17 11:39 APTT 33 SECONDS (21-34) 08/23/17 11:39 - Constitutional Appears: Non-toxic, No Acute Distress - Head Exam Head Exam: ATRAUMATIC, NORMAL INSPECTION, NORMOCEPHALIC - Eye Exam Eye Exam: EOMI, Normal appearance - ENT Exam ENT Exam: Mucous Membranes Moist, Normal Exam - Neck Exam Neck Exam: Full ROM, Normal Inspection - Respiratory Exam Respiratory Exam: NORMAL BREATHING PATTERN - Cardiovascular Exam Cardiovascular Exam: REGULAR RHYTHM - GI/Abdominal Exam GI & Abdominal Exam: Distended (mildly), Soft, Tenderness. absent: Firm, Guarding, Rigid - Extremities Exam Extremities Exam: Normal Inspection - Neurological Exam Neurological Exam: Alert, Awake, CN II-XII Intact, Oriented x3 - Psychiatric Exam Psychiatric exam: Normal Affect, Normal Mood - Skin Skin Exam: Dry, Intact, Normal Color, Warm Assessment and Plan - Assessment and Plan (Free Text) Assessment: 61F w/pSBO, ab pain (resolving) Plan: NPO for now Monitor for bowel function Strict I/O Pain control Anti-emetic PRN Serial ab exams No surgical intervention at this time Will follow DW attending Issi, PGY-1
--- NOTE | 2017-08-23 17:51 | CP.PCM.PN ---
Subjective - Date & Time of Evaluation Date of Evaluation: 08/23/17 Time of Evaluation: 07:40 - Subjective Subjective: clinically same Objective - Vital Signs/Intake and Output Vital Signs (last 24 hours): Temp Pulse Resp BP Pulse Ox 98.8 F 86 20 112/74 95 08/23/17 16:00 08/23/17 16:00 08/23/17 16:00 08/23/17 16:00 08/23/17 16:00 Intake and Output: 08/23/17 08/23/17 06:59 18:59 Intake Total 800 1640 Balance 800 1640 - Medications Medications: Current Medications Acetaminophen (Tylenol 325mg Tab) 650 mg PO Q6 PRN PRN Reason: Fever >100.4 F Famotidine (Pepcid) 20 mg IVP Q12 [facility] Last Admin: 08/23/17 10:51 Dose: 20 mg Potassium Chloride 10 meq/ (Dextrose/Sodium Chloride) 1,005 mls @ 100 mls/hr IV .Q10H3M [facility] Last Admin: 08/23/17 10:57 Dose: Not Given Cefepime HCl 1 gm/ Dextrose 50 mls @ 100 mls/hr IVPB Q12H [facility] Last Admin: 08/23/17 05:15 Dose: 100 mls/hr Metoclopramide HCl (Reglan) 5 mg IVP Q8H [facility] Last Admin: 08/23/17 13:34 Dose: 5 mg Morphine Sulfate (Morphine) 1 mg IVP Q4 PRN PRN Reason: Pain, severe (8-10) Last Admin: 08/22/17 15:04 Dose: 1 mg Morphine Sulfate (Morphine) 2 mg IVP Q4 PRN PRN Reason: Pain, moderate (4-7) Pantoprazole Sodium (Protonix Inj) 40 mg IVP DAILY [facility] Last Admin: 08/23/17 10:52 Dose: 40 mg - Labs Labs: 08/23/17 08:26 08/23/17 08:26 PT 13.3 SECONDS (9.7-12.2) H 08/23/17 11:39 INR 1.2 08/23/17 11:39 APTT 33 SECONDS (21-34) 08/23/17 11:39 - Constitutional Appears: Well - Head Exam Head Exam: ATRAUMATIC, NORMAL INSPECTION, NORMOCEPHALIC - Eye Exam Eye Exam: EOMI, Normal appearance, PERRL Pupil Exam: NORMAL ACCOMODATION, PERRL - ENT Exam ENT Exam: Mucous Membranes Moist, Normal Exam - Neck Exam Neck Exam: Full ROM, Normal Inspection. absent: Lymphadenopathy - Respiratory Exam Respiratory Exam: Decreased Breath Sounds - Cardiovascular Exam Cardiovascular Exam: REGULAR RHYTHM, +S1, +S2 - GI/Abdominal Exam GI & Abdominal Exam: Soft, Diminished Bowel Sounds - Rectal Exam Rectal Exam: Deferred
[2017-08-23] MEDS: Sodium Chloride 0.9% 1,000 ML IV SCH (21:55)
--- NOTE | 2017-08-24 06:10 | CP.PCM.PN ---
Subjective - Date & Time of Evaluation Date of Evaluation: 08/24/17 Time of Evaluation: 07:45 - Subjective Subjective: General surgery progress note for Dr. Foreign Marinelli, PGY-1 Pt S & E at bedside. Pt resting comfortably in bed. Reports continued liquid stools, ab pain improved. Denies flatus, N & V, F & C. Objective - Vital Signs/Intake and Output Vital Signs (last 24 hours): Temp Pulse Resp BP Pulse Ox 98.8 F 88 20 116/74 95 08/24/17 00:00 08/24/17 00:00 08/24/17 00:00 08/24/17 00:00 08/24/17 00:00 Intake and Output: 08/23/17 08/24/17 18:59 06:59 Intake Total 1640 Balance 1640 - Medications Medications: Current Medications Acetaminophen (Tylenol 325mg Tab) 650 mg PO Q6 PRN PRN Reason: Fever >100.4 F Cefepime HCl 1 gm/ Dextrose 50 mls @ 100 mls/hr IVPB Q12H [facility] Last Admin: 08/24/17 05:46 Dose: 100 mls/hr Sodium Chloride (Sodium Chloride 0.9%) 1,000 mls @ 100 mls/hr IV .Q10H [facility] Last Admin: 08/23/17 21:55 Dose: 100 mls/hr Metoclopramide HCl (Reglan) 5 mg IVP Q8H [facility] Last Admin: 08/24/17 05:45 Dose: 5 mg Pantoprazole Sodium (Protonix Inj) 40 mg IVP DAILY [facility] Last Admin: 08/23/17 10:52 Dose: 40 mg - Labs Labs: 08/23/17 08:26 08/23/17 08:26 PT 13.3 SECONDS (9.7-12.2) H 08/23/17 11:39 INR 1.2 08/23/17 11:39 APTT 33 SECONDS (21-34) 08/23/17 11:39 - Constitutional Appears: Non-toxic, No Acute Distress - Head Exam Head Exam: ATRAUMATIC, NORMAL INSPECTION, NORMOCEPHALIC - Eye Exam Eye Exam: EOMI, Normal appearance - ENT Exam ENT Exam: Mucous Membranes Moist, Normal Exam - Neck Exam Neck Exam: Full ROM, Normal Inspection - Respiratory Exam Respiratory Exam: NORMAL BREATHING PATTERN - Cardiovascular Exam Cardiovascular Exam: REGULAR RHYTHM - GI/Abdominal Exam GI & Abdominal Exam: Distended (slightly), Firm (over lower quadrants), Soft. absent: Guarding, Rigid, Tenderness, Rebound - Extremities Exam Extremities Exam: Normal Inspection - Neurological Exam Neurological Exam: Alert, Awake, CN II-XII Intact, Oriented x3 - Psychiatric Exam Psychiatric exam: Normal Affect, Normal Mood - Skin Skin Exam: Dry, Intact, Normal Color, Warm Assessment and Plan - Assessment and Plan (Free Text) Assessment: 61F w/pSBO, ab pain (resolving) Plan: NPO for now Monitor for bowel function Strict I/O Pain control Anti-emetic PRN Serial ab exams No surgical intervention at this time Will follow KEVIN attending [facility], PGY-1
[2017-08-24 08:49] LABS: BASO % 0.2 % (0.0-2.0); EOS # 0.1 K/uL (0.0-0.7); EOS % 0.6 % (0.0-4.0); HEMOGLOBIN 12.1 g/dL (11.0-16.0); LYMPH # 0.5 K/uL (1.0-4.3); LYMPH % 4.7 % (20.0-40.0); MEAN CORPUSCULAR HEMOGLOBIN 29.9 pg (27.0-31.0); MEAN CORPUSCULAR HGB CONC 34.3 g/dL (33.0-37.0); MEAN PLATELET VOLUME 7.8 fL (7.2-11.7); MONO # 0.5 K/uL (0.0-0.8); MONO % 4.7 % (0.0-10.0); NEUT # 10.3 K/uL (1.8-7.0); NEUT % 89.8 % (50.0-75.0); PLATELET COUNT 265 K/uL (130-400); RBC 4.05 Mil/uL (3.80-5.20); RED CELL DISTRIBUTION WIDTH 13.1 % (11.5-14.5); WHITE BLOOD COUNT 11.4 K/uL (4.8-10.8)
[2017-08-24 09:15] LABS: ALB/GLOB RATIO 0.9 (1.0-2.1); ALT/SGPT 20 U/L (9-52); AST/SGOT 22 U/L (14-36); BLOOD UREA NITROGEN 6 mg/dL (7-17); CALCIUM 7.8 mg/dl (8.6-10.4); GFR AFRICAN-AMERICAN > 60; GFR NON-AFRICAN AMERICAN > 60
[2017-08-24] MEDS: Sodium Chloride 0.9% 1,000 ML IV SCH ×3 (09:23→18:25)
[2017-08-24 10:44] LABS: BANDS 4 % (0-2); EOSINOPHIL 2 % (0-4); LYMPHOCYTE 2 % (20-40); MONOCYTE 2 % (0-10); NEUTROPHIL 90 % (50-75); TOTAL CELLS COUNTED 100
[2017-08-24 10:45] LABS: PLATELET ESTIMATE NORMAL (NORMAL)
--- NOTE | 2017-08-24 13:31 | CP.PCM.PN ---
Subjective - Date & Time of Evaluation Date of Evaluation: 08/24/17 Time of Evaluation: 07:40 - Subjective Subjective: clinically same Objective - Vital Signs/Intake and Output Vital Signs (last 24 hours): Temp Pulse Resp BP Pulse Ox 98.4 F 94 H 20 130/88 96 08/24/17 08:38 08/24/17 08:38 08/24/17 08:38 08/24/17 08:38 08/24/17 08:38 Intake and Output: 08/24/17 08/24/17 06:59 18:59 Intake Total 970 Balance 970 - Medications Medications: Current Medications Acetaminophen (Tylenol 325mg Tab) 650 mg PO Q6 PRN PRN Reason: Fever >100.4 F Cefepime HCl 1 gm/ Dextrose 50 mls @ 100 mls/hr IVPB Q12H [facility] Last Admin: 08/24/17 05:46 Dose: 100 mls/hr Sodium Chloride (Sodium Chloride 0.9%) 1,000 mls @ 100 mls/hr IV .Q10H [facility] Last Admin: 08/24/17 09:37 Dose: 100 mls/hr Metoclopramide HCl (Reglan) 5 mg IVP Q8H [facility] Last Admin: 08/24/17 05:45 Dose: 5 mg Pantoprazole Sodium (Protonix Inj) 40 mg IVP DAILY [facility] Last Admin: 08/24/17 09:31 Dose: 40 mg - Labs Labs: 08/24/17 08:34 08/24/17 08:34 PT 13.3 SECONDS (9.7-12.2) H 08/23/17 11:39 INR 1.2 08/23/17 11:39 APTT 33 SECONDS (21-34) 08/23/17 11:39 - Constitutional Appears: Well - Head Exam Head Exam: ATRAUMATIC, NORMAL INSPECTION, NORMOCEPHALIC - Eye Exam Eye Exam: EOMI, Normal appearance, PERRL Pupil Exam: NORMAL ACCOMODATION, PERRL - ENT Exam ENT Exam: Mucous Membranes Moist, Normal Exam - Neck Exam Neck Exam: Full ROM, Normal Inspection. absent: Lymphadenopathy - Respiratory Exam Respiratory Exam: Decreased Breath Sounds - Cardiovascular Exam Cardiovascular Exam: REGULAR RHYTHM, +S1, +S2 - GI/Abdominal Exam GI & Abdominal Exam: Soft, Diminished Bowel Sounds - Rectal Exam Rectal Exam: Deferred
[2017-08-24] MEDS ORDERED: Sodium Phosphate 15 MMOLE in Sodium Chloride 0.9% 250 ML IVPB ONE (18:57)
[2017-08-25] MEDS: Sodium Chloride 0.9% 1,000 ML IV SCH ×2 (05:47→12:44)
[2017-08-25 07:18] LABS: BASO # 0.1 K/uL (0.0-0.2); BASO % 0.4 % (0.0-2.0); EOS % 0.3 % (0.0-4.0); HEMOGLOBIN 11.7 g/dL (11.0-16.0); LYMPH # 0.6 K/uL (1.0-4.3); LYMPH % 3.7 % (20.0-40.0); MEAN CELL VOLUME 86.4 fL (81.0-99.0); MEAN CORPUSCULAR HEMOGLOBIN 29.8 pg (27.0-31.0); MEAN CORPUSCULAR HGB CONC 34.5 g/dL (33.0-37.0); MEAN PLATELET VOLUME 7.4 fL (7.2-11.7); MONO % 6.7 % (0.0-10.0); NEUT # 13.2 K/uL (1.8-7.0); NEUT % 88.9 % (50.0-75.0); PLATELET COUNT 281 K/uL (130-400); RBC 3.93 Mil/uL (3.80-5.20); RED CELL DISTRIBUTION WIDTH 12.8 % (11.5-14.5); WHITE BLOOD COUNT 14.8 K/uL (4.8-10.8)
[2017-08-25 08:03] LABS: ALBUMIN 2.8 g/dL (3.5-5.0); ALT/SGPT 21 U/L (9-52); AST/SGOT 27 U/L (14-36); BLOOD UREA NITROGEN 8 mg/dL (7-17); CALCIUM 7.9 mg/dl (8.6-10.4); GFR AFRICAN-AMERICAN > 60; GFR NON-AFRICAN AMERICAN > 60; MAGNESIUM 2.1 mg/dL (1.6-2.3)
--- NOTE | 2017-08-25 08:42 | CP.PCM.PN ---
Subjective - Date & Time of Evaluation Date of Evaluation: 08/25/17 Time of Evaluation: 06:45 - Subjective Subjective: General surgery progress note for Dr. Foreign Marinelli, PGY-1 Pt S & E at bedside. Pt resting comfortably in bed. Pt reports continued diarrhea, but now with some pieces of solid stool. Denies N & V, F & C. Objective - Vital Signs/Intake and Output Vital Signs (last 24 hours): Temp Pulse Resp BP Pulse Ox 98.9 F 90 20 112/73 97 08/25/17 08:35 08/25/17 08:35 08/25/17 08:35 08/25/17 08:35 08/25/17 08:35 Intake and Output: 08/25/17 08/25/17 06:59 18:59 Intake Total 800 Balance 800 - Medications Medications: Current Medications Acetaminophen (Tylenol 325mg Tab) 650 mg PO Q6 PRN PRN Reason: Fever >100.4 F Cefepime HCl 1 gm/ Dextrose 50 mls @ 100 mls/hr IVPB Q12H [facility] Last Admin: 08/25/17 05:46 Dose: 100 mls/hr Sodium Chloride (Sodium Chloride 0.9%) 1,000 mls @ 100 mls/hr IV .Q10H [facility] Last Admin: 08/25/17 05:47 Dose: 100 mls/hr Metoclopramide HCl (Reglan) 5 mg IVP Q8H [facility] Last Admin: 08/25/17 05:45 Dose: Not Given Pantoprazole Sodium (Protonix Inj) 40 mg IVP DAILY [facility] Last Admin: 08/24/17 09:31 Dose: 40 mg Potassium Chloride (Potassium Chloride Oral Soln) 60 meq PO ONCE ONE Stop: 08/25/17 08:46 - Labs Labs: 08/25/17 07:06 08/25/17 07:06 PT 13.3 SECONDS (9.7-12.2) H 08/23/17 11:39 INR 1.2 08/23/17 11:39 APTT 33 SECONDS (21-34) 08/23/17 11:39 - Constitutional Appears: Non-toxic, No Acute Distress - Head Exam Head Exam: ATRAUMATIC, NORMAL INSPECTION, NORMOCEPHALIC - Eye Exam Eye Exam: EOMI, Normal appearance - ENT Exam ENT Exam: Mucous Membranes Moist, Normal Exam - Neck Exam Neck Exam: Full ROM, Normal Inspection - Respiratory Exam Respiratory Exam: NORMAL BREATHING PATTERN - Cardiovascular Exam Cardiovascular Exam: REGULAR RHYTHM - GI/Abdominal Exam GI & Abdominal Exam: Distended (mildly), Guarding (suprapubic), Soft. absent: Firm, Rigid, Tenderness, Mass, Rebound - Extremities Exam Extremities Exam: Full ROM, Normal Inspection - Neurological Exam Neurological Exam: Alert, Awake, CN II-XII Intact, Oriented x3 - Psychiatric Exam Psychiatric exam: Normal Affect, Normal Mood - Skin Skin Exam: Dry, Intact, Normal Color, Warm Assessment and Plan - Assessment and Plan (Free Text) Assessment: 61F w/pSBO, ab pain (resolving) Plan: Advanced to CLD K 3.0- replaced 60mEq Strict I/O Cont pain control Anti-emetic PRN Serial ab exams No surgical intervention at this time OOBTC Ambulate Further mgmt as per primary team KEVIN attending [facility], PGY-1
[2017-08-25] MEDS ORDERED: Potassium Chloride 20 mEq/15 ml LIQ UD PO ONE (08:45)
[2017-08-25 10:06] LABS: TOTAL CELLS COUNTED 100
[2017-08-25 10:08] LABS: BANDS 3 % (0-2); LYMPHOCYTE 5 % (20-40); MONOCYTE 3 % (0-10); NEUTROPHIL 89 % (50-75); PLATELET ESTIMATE NORMAL (NORMAL)
--- NOTE | 2017-08-25 10:30 | CP.PCM.PN ---
<Mane Vance - Last Filed: 08/25/17 10:26> Subjective - Date & Time of Evaluation Date of Evaluation: 08/25/17 Time of Evaluation: 10:30 - Subjective Subjective: PROGRESS NOTE. ATTENDING: ALFONSO MARK Pt seen and examined at bedside. No acute distress. No fevers, chills, vomiting. Pain has subsided. Sx following. Pt admits to BM. Objective - Vital Signs/Intake and Output Vital Signs (last 24 hours): Temp Pulse Resp BP Pulse Ox 98.9 F 90 20 112/73 97 08/25/17 08:35 08/25/17 08:35 08/25/17 08:35 08/25/17 08:35 08/25/17 08:35 Intake and Output: 08/25/17 08/25/17 06:59 18:59 Intake Total 800 Balance 800 - Medications Medications: Current Medications Acetaminophen (Tylenol 325mg Tab) 650 mg PO Q6 PRN PRN Reason: Fever >100.4 F Cefepime HCl 1 gm/ Dextrose 50 mls @ 100 mls/hr IVPB Q12H [facility] Last Admin: 08/25/17 05:46 Dose: 100 mls/hr Sodium Chloride (Sodium Chloride 0.9%) 1,000 mls @ 100 mls/hr IV .Q10H [facility] Last Admin: 08/25/17 05:47 Dose: 100 mls/hr Metoclopramide HCl (Reglan) 5 mg IVP Q8H [facility] Last Admin: 08/25/17 05:45 Dose: Not Given Pantoprazole Sodium (Protonix Inj) 40 mg IVP DAILY [facility] Last Admin: 08/25/17 09:40 Dose: 40 mg - Labs Labs: 08/25/17 07:06 08/25/17 07:06 PT 13.3 SECONDS (9.7-12.2) H 08/23/17 11:39 INR 1.2 08/23/17 11:39 APTT 33 SECONDS (21-34) 08/23/17 11:39 - Constitutional Appears: Non-toxic, No Acute Distress - Head Exam Head Exam: ATRAUMATIC, NORMAL INSPECTION, NORMOCEPHALIC - Eye Exam Eye Exam: EOMI - ENT Exam ENT Exam: Mucous Membranes Moist - Neck Exam Neck Exam: Full ROM, Normal Inspection - Respiratory Exam Respiratory Exam: absent: Respiratory Distress - Cardiovascular Exam Cardiovascular Exam: +S1, +S2 - GI/Abdominal Exam GI & Abdominal Exam: Soft, Normal Bowel Sounds. absent: Tenderness - Extremities Exam Extremities Exam: Full ROM, Normal Inspection - Neurological Exam Neurological Exam: Alert, Awake, CN II-XII Intact - Psychiatric Exam Psychiatric exam: Normal Affect, Normal Mood - Skin Skin Exam: Dry, Intact, Normal Color, Warm Assessment and Plan - Assessment and Plan (Free Text) Assessment: This is a 61 yo female, originally from [place], with 1. Small bowel obstruction -sx consult. DR PUENTE. -no sx intervention at this time -cont to advance diet -clear liquid diet -pain control with tylenol -reglan for nausea -continue IV cefepime -encourage ambulation -continue IV NS -continue to monitor leukocytosis 2. GI/DVT ppx -SCDs -protonix discussed with DR MARK <Ramonita Mark S - Last Filed: 08/25/17 18:50> Objective - Vital Signs/Intake and Output Vital Signs (last 24 hours): Temp Pulse Resp BP Pulse Ox 99 F 88 20 119/77 96 08/25/17 16:00 08/25/17 16:00 08/25/17 16:00 08/25/17 16:00 08/25/17 16:00 Intake and Output: 08/25/17 08/25/17 06:59 18:59 Intake Total 800 1280 Balance 800 1280 - Medications Medications: Current Medications Acetaminophen (Tylenol 325mg Tab) 650 mg PO Q6 PRN PRN Reason: Fever >100.4 F Potassium Chloride (Potassium Chloride 20 Meq/100 Ml) 20 meq in 100 mls @ 50 mls/hr IVPB Q2 [facility] Stop: 08/26/17 01:59 Metoclopramide HCl (Reglan) 5 mg IVP Q8H [facility] Last Admin: 08/25/17 13:49 Dose: 5 mg Pantoprazole Sodium (Protonix Inj) 40 mg IVP DAILY [facility] Last Admin: 08/25/17 09:40 Dose: 40 mg - Labs Labs: 08/25/17 07:06 08/25/17 07:06 PT 13.3 SECONDS (9.7-12.2) H 08/23/17 11:39 INR 1.2 08/23/17 11:39 APTT 33 SECONDS (21-34) 08/23/17 11:39 Attending/Attestation - Attestation I have personally seen and examined this patient.: Yes I have fully participated in the care of the patient.: Yes I have reviewed all pertinent clinical information, including history, physical exam and plan: Yes Notes (Text): 08/25/17 18:49 case seen and d/w staff and resdient no other complaints like n/v no chest pain
[2017-08-25 16:22] VITALS: BP 119/77; PULSE 88; TEMP 99; O2SAT 96
--- NOTE | 2017-08-25 16:48 | CP.PCM.PN ---
Subjective - Date & Time of Evaluation Date of Evaluation: 08/25/17 Time of Evaluation: 07:40 - Subjective Subjective: clinically same Objective - Vital Signs/Intake and Output Vital Signs (last 24 hours): Temp Pulse Resp BP Pulse Ox 99 F 88 20 119/77 96 08/25/17 16:00 08/25/17 16:00 08/25/17 16:00 08/25/17 16:00 08/25/17 16:00 Intake and Output: 08/25/17 08/25/17 06:59 18:59 Intake Total 800 1280 Balance 800 1280 - Medications Medications: Current Medications Acetaminophen (Tylenol 325mg Tab) 650 mg PO Q6 PRN PRN Reason: Fever >100.4 F Metoclopramide HCl (Reglan) 5 mg IVP Q8H [facility] Last Admin: 08/25/17 13:49 Dose: 5 mg Pantoprazole Sodium (Protonix Inj) 40 mg IVP DAILY [facility] Last Admin: 08/25/17 09:40 Dose: 40 mg - Labs Labs: 08/25/17 07:06 08/25/17 07:06 PT 13.3 SECONDS (9.7-12.2) H 08/23/17 11:39 INR 1.2 08/23/17 11:39 APTT 33 SECONDS (21-34) 08/23/17 11:39 - Constitutional Appears: Well - Head Exam Head Exam: ATRAUMATIC, NORMAL INSPECTION, NORMOCEPHALIC - Eye Exam Eye Exam: EOMI, Normal appearance, PERRL Pupil Exam: NORMAL ACCOMODATION, PERRL - ENT Exam ENT Exam: Mucous Membranes Moist, Normal Exam - Neck Exam Neck Exam: Full ROM, Normal Inspection. absent: Lymphadenopathy - Respiratory Exam Respiratory Exam: Decreased Breath Sounds - Cardiovascular Exam Cardiovascular Exam: REGULAR RHYTHM, +S1, +S2 - GI/Abdominal Exam GI & Abdominal Exam: Soft, Diminished Bowel Sounds - Rectal Exam Rectal Exam: Deferred
== END 2017-08-25 20:08 | disposition left against medical advice (07) | DRG 390 ==
LOC: C.ER 01:15 → C.9E 05:58 → C.3T 06:12
PROVIDERS: ADMIT Internal Medicine Nephrology; ATTEND Internal Medicine Nephrology
DX: K56.600 Partial intestinal obstruction, unspecified as to cause (principal); D72.829 Elevated white blood cell count, unspecified; K21.9 Gastro-esophageal reflux disease without esophagitis; K57.90 Diverticulosis of intestine, part unspecified, without perforation or abscess without bleeding; K25.9 Gastric ulcer, unspecified as acute or chronic, without hemorrhage or perforation; Z85.43 Personal history of malignant neoplasm of ovary; Z87.11 Personal history of peptic ulcer disease; Z92.21 Personal history of antineoplastic chemotherapy; Z92.3 Personal history of irradiation